=== PATIENT | female | born 2000 | race American Indian/Alaskan Native ===

== ENCOUNTER 2018-12-01 14:03 | Emergency (ER) | payer OTHER ==
[2018-12-01] MEDS ORDERED: IBUPROFEN 800 MG TAB PO ONE (16:10)
[2018-12-01] MEDS ORDERED: CYCLOBENZAPRINE 10 MG TAB PO ONE (16:10)
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
[2018-12-01 18:25] VITALS: BP 105/64
== END 2018-12-01 18:25 | disposition home or self-care (01) ==
LOC: ED 14:03
DX: M54.2 Cervicalgia (principal); R07.89 Other chest pain; M79.602 Pain in left arm; M79.601 Pain in right arm; V49.59XA Passenger injured in collision with other motor vehicles in traffic accident, initial encounter; Y93.89 Activity, other specified; Y92.89 Other specified places as the place of occurrence of the external cause; Y99.8 Other external cause status
CPT/HCPCS: 71046; 72040